=== PATIENT | female | born 1980 | race Caucasian/White ===

== ENCOUNTER 2016-12-02 13:02 | Day surgery (SDC) | payer SELFPAY ==
--- NOTE | ~2016-12-02 | OP ---
Record Of Operation [facility] [address] [place]. 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 POSTOPERATIVE DIAGNOSIS: Massive herniated nucleus polyposis at L5-S1 with cauda equina syndrome. PROCEDURE: Microscopic navigation-assisted left L5-S1 hemilaminotomy, foraminotomy, partial- medial facetectomy, and microdiskectomy. SURGEON: Celestino Muro D.O. UTILITIES ESTIMATOR AND DRAFTER: Luis Alston. ANESTHESIA: General. ESTIMATED BLOOD LOSS: 10 mL. INDICATIONS FOR SURGERY: A 36-year-old female who had an acute onset of severe pain in her low back, then it moved into the hips and legs, left side much greater than right just a few days ago. She was seen in the emergency room [facility]. No x-rays taken and no CT or MRI obtained. The patient even at that time had severe back pain, leg pain, and also had loss of sensation around the perivaginal and perirectal region. She did not have actual loss of bowel control, had some urinary leakage when in weightbearing position. She came to the office yesterday afternoon with the same history. Physical findings revealed a drop foot on the left and significant neurologic deficit in both S1 distribution, the left side worse than right. I did not do a rectal exam, but she did have decreased sensation in the perivaginal and the buttock area. MRI was obtained in a stat manner and the MRI showed a massive herniation at L5-S1 completely filling the canal. This felt that she had at least a partial cauda equina syndrome and she was advised to have surgery this morning. She is brought to Surgery for the above procedure having such neurologic deficit in inappropriate to try to treat this with conservative care. After identifying the patient in preop holding, all questions were answered. The patient voiced understanding the risks, willingness to accept those, and requested to proceed with surgery. DESCRIPTION OF PROCEDURE: Antibiotic prophylaxis given. Neurophysiology monitoring leads inserted. The patient was brought to the operative suite. General anesthetic including endotracheal intubation was administered. She was placed prone on a Vazquez spine frame. Bony prominences were carefully padded. Thoracolumbar spine was scrubbed with Hibiclens solution. DuraPrep was painted. Sterile drapes applied. A small stab wound was carried out over the right posterior superior iliac spine. A Record Of Operation [address] [place]. [address] NAME: TORSTEN DEMARCO : 82 STATUS : DIS IN PAT#: [id number] AGE: 36 ADM/REG DATE : 12/02/16 MR#: [id number] REPORT SERV DATE: 12/03/16 DICTATED BY: CELESTINO MURO DATE: 12/02/16 REPORT STATUS : Draft TRANSCRIBED BY: DAISY DATE: 12/02/16 percutaneous pin with navigational frame attached was inserted in the PSIS. Intraoperative CT scan with O-arm obtained. CT information used to register the navigational system. With navigational assistance, I identified L5-S1. Just left of midline, a 2 cm skin incision was carried out. A blunt navigated probe placed through the fascia and muscle and docked over the interlaminar space. Muscle dilators were inserted and followed by placement of a tubular retractor attached to an arm mount, though microscope was sterilely draped and used throughout the remainder of procedure. With navigational assistance, I determined the amount of lamina of L5 and needed to remove in order to reach the cephalad boundary of the disk space and just behind the body of L5. I also determined the amount of medial facet joint needed to be removed and reach the lateral aspect of the thecal sac. I used a 3 mm marichuy bur removed 60% of lamina of L5 and 25% of the medial facet joint of L5-S1. The lateral ligamentum flavum was elevated and removed. Through the axilla between the thecal sac and the S1 nerve root, I was able to mobilize the large disk fragment. This was a massive disk fragment including nuclear material as well as the endplate cartilage. This was huge and was removed without difficulty. I was then able to mobilize the thecal sac and the S1 nerve root. On the left toward the midline, I completed the diskectomy with curettes and rongeurs. There was some small degree of calcification of prior disk material that was debrided, but 90% of this was new disk herniation that was completely filling the canal. The wound was irrigated afterwards. There was no pressure on the thecal sac or over traversing nerve roots. After final irrigation, the retractor was removed. The fascial layer was allowed to reapproximate itself. The subcutaneous tissue closed with 2-0 Vicryl suture, 2-0 vertical mattress. Nylon suture was used for skin closure. Sterile dressings applied. The patient returned to supine position, awakened, extubated, taken to recovery room in satisfactory condition having tolerated the procedure well. Sponge, needle, and instrument counts were correct. No intraoperative complications noted. JAZMIN/MODL Celestino Muro D.O. / [id number] CC: Manuel Kincaid CRYSTAL
[2016-12-02 13:01] LABS: BUN (BLOOD UREA NITROGEN) 14 MG/DL (6-23); CHLORIDE, SERUM 109 MMOL/L (96-112); CO2 (CARBON DIOXIDE) 20 MMOL/L (24-34); CREATININE 0.75 MG/DL (0.55-1.02); GFR AFRICAN AMERICAN 120 ML/MIN (>=60); GFR NON AFRICAN AMERICAN 103 ML/MIN (>=60); GLUCOSE, SERUM 97 MG/DL (60-99); POTASSIUM, SERUM 4.1 MMOL/L (3.5-5.3); SODIUM, SERUM 141 MMOL/L (135-148)
[~2016-12-02 13:02] MED LIST: AMARYL2 PO; GLUCPH PO; MOBIC15 MG PO; PRIN5 PO
== END 2016-12-02 23:59 | disposition home or self-care (01) ==
LOC: SDC 13:02
PROVIDERS: Orthopaedic Surgery Orthopaedic Surgery of the Spine
PROC: 0SB20ZZ Excision of Lumbar Vertebral Disc, Open Approach (ICD-10-PCS; principal; 2016-12-02 15:45)
PROC: 01NB0ZZ Release Lumbar Nerve, Open Approach (ICD-10-PCS; 2016-12-02 15:45)
DX: M51.27 Other intervertebral disc displacement, lumbosacral region (principal); G83.4 Cauda equina syndrome; E11.9 Type 2 diabetes mellitus without complications; I10 Essential (primary) hypertension; E66.9 Obesity, unspecified; Z79.1 Long term (current) use of non-steroidal anti-inflammatories (NSAID); Z79.84 Long term (current) use of oral hypoglycemic drugs; Z79.899 Other long term (current) drug therapy
CPT/HCPCS: 80048; 82962; 84703; 88304; 88311; A9270-GY; J0690; J2250; J2274; J2405; J2550; J2710; J3010